=== PATIENT | female | born 1930 | race Caucasian/White ===

== ENCOUNTER 2017-09-01 10:00 | Emergency (ER) | payer OTHER ==
[~2017-09-01] VITALS: Ht 157.5 cm; Wt 62.6 kg
[~2017-09-01 10:00] MED LIST: ARICEPT5 MG; PLAVIX75 MG; SYNTHROID75 MCG; SYNVASTATIN
== END 2017-09-01 17:28 | disposition home or self-care (01) ==
LOC: ER 10:00
DX: B34.9 Viral infection, unspecified (principal)

== ENCOUNTER 2017-11-29 13:47 | Emergency (ER) | payer OTHER ==
[~2017-11-29] VITALS: Ht 157.5 cm; Wt 62.6 kg
[2017-11-29] MEDS ORDERED: EXELON1 EAC1 TD (14:03)
== END 2017-11-29 18:25 | disposition home or self-care (01) ==
LOC: ER 13:47
DX: I82.412 Acute embolism and thrombosis of left femoral vein (principal); I87.2 Venous insufficiency (chronic) (peripheral)

== ENCOUNTER 2018-01-16 11:29 | Emergency (ER) | payer OTHER ==
[~2018-01-16] VITALS: Ht 157.5 cm; Wt 63.5 kg
[~2018-01-16 11:29] MED LIST changes: +EXELON1 EAC1 TD
[2018-01-16] MEDS ORDERED: EXELON1 EAC1 TD (11:45)
[2018-01-16] MEDS ORDERED: ELIQUIS5 MG PO (11:46)
[2018-01-16] MEDS ORDERED: SYNTHROID88 MCG PO (11:47)
== END 2018-01-16 22:54 | disposition home or self-care (01) ==
LOC: ER 11:29
DX: J84.10 Pulmonary fibrosis, unspecified (principal); J11.1 Influenza due to unidentified influenza virus with other respiratory manifestations

== ENCOUNTER 2018-02-19 14:51 | Outpatient (CLI) | payer OTHER ==
[~2018-02-19 14:51] MED LIST changes: +ELIQUIS5 MG PO; +SYNTHROID88 MCG PO
== END 2018-02-19 15:00 | disposition home or self-care (01) ==
LOC: NUCLEAR 14:51
DX: R70.0 Elevated erythrocyte sedimentation rate (principal); R63.4 Abnormal weight loss
CPT/HCPCS: 78802; A9556